=== PATIENT | male | born 1980 | race Caucasian/White ===

== ENCOUNTER → 2016-04-28 | Outpatient (CLI) | payer OTHER ==
--- NOTE | 2016-04-28 11:55 | MR ---
EXAMINATION TYPE: MR lumbar spine wo con DATE OF EXAM: 04/28/2016 11:18 AM COMPARISON: Radiographs 02/08/2015. HISTORY: 36-year-old male with lumbago, back pain for a few years going down right leg. TECHNIQUE: Multiplanar, multisequence images of the lumbar spine were acquired. 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 Vertebral body heights are preserved and alignment is maintained. Conus medullaris is normal. Very mild early desiccation of the L4-L5 intervertebral disc with mild disc bulging. There is a small left intraforaminal annular fissure here. The disc bulge contributes to mild narrowing of the bilat eral neuroforamina. At L3-L4, there is a right intraforaminal disc bulge contributing to mild right-sided neural foramina l narrowing with possible abutment of the exiting right L3 nerve root, sagittal image 10. No prevertebral or paravertebral soft tissue abnormality seen. IMPRESSION: 1. Very early disc desiccation at L4-L5 with bulging disks at L4-L5 and L3-L4. 2. An intraforaminal disc bulge at L3-L4 may abut the exiting right L3 nerve root. 3. Small left intraforaminal annular fissure at L4-L5 with bulging disc causing mild bilateral neurof oraminal stenoses. 4. 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
== END | disposition home or self-care (01) ==
LOC: RADMRIMAIN 10:40
PROVIDERS: ATTEND Psychiatry & Neurology Neurology
DX: M51.26 Other intervertebral disc displacement, lumbar region (principal); M99.73 Connective tissue and disc stenosis of intervertebral foramina of lumbar region; Q76.49 Other congenital malformations of spine, not associated with scoliosis
CPT/HCPCS: 72148

== ENCOUNTER 2021-03-23 21:45 | Emergency (ER) | payer OTHER ==
[2021-03-23 23:08] VITALS: RESP 20
[2021-03-24] MEDS ORDERED: ACETAMINOPHEN TAB 500 MG TAB PO STA (01:14)
[2021-03-24] MEDS ORDERED: SODIUM CHLORIDE 0.9% 1,000 ML IV ONE (01:14)
[2021-03-24] MEDS ORDERED: KETOROLAC 15 MG/ML 1 ML VIAL IVP STA (01:14)
[2021-03-24] MEDS ORDERED: SODIUM CHLORIDE 0.9% 50 ML IVPB ONE (01:30)
[2021-03-24] MEDS ORDERED: CASIRIVIMAB (REGN10933) (EUA) 600 MG, IMDEVIMAB (REGN10987) (EUA) 600 MG in SODIUM CHLO... IVPB ONE (02:00)
--- NOTE | 2021-03-24 02:52 | ED ---
General Adult HPI - General Chief complaint: Dizziness Stated complaint: Dizziness,Fever Time Seen by Provider: 03/24/21 01:04 Source: patient Mode of arrival: ambulatory Limitations: no limitations - History of Present Illness Initial comments: 41 year-old male patient presents to the emergency department today for evaluation of headache, chills, body aches. States symptoms started today. He also reports intermittent dizziness especially with standing. Denies any known fevers. States he is otherwise healthy. Patient denies any recent rash, cough, shortness of breath, chest pain, abdominal pain, nausea, vomiting, diarrhea, constipation, back pain, numbness, tingling, hematuria, dysuria, urinary urgency, urinary frequency, visual changes, or any other complaints. - Related Data Home Medications Medication Instructions Recorded Confirmed traMADol HCl [Ultram] 50 mg PO Q6H PRN 08/04/15 08/04/15 Previous Rx's Medication Instructions Recorded Hydrocortisone Cream 1 applic TOPICAL BID #1 tube 08/04/15 [Hydrocortisone 2.5% Cream] Allergies Allergy/AdvReac Type Severity Reaction Status Date / Time aspirin Allergy Unknown Verified 03/23/21 23:08 Childhood Penicillins Allergy Unknown Verified 03/23/21 23:08 Childhood Review of Systems ROS Statement: Those systems with pertinent positive or pertinent negative responses have been documented in the HPI. ROS Other: All systems not noted in ROS Statement are negative. Past Medical History Past Medical History: No Reported History, Myocardial Infarction (CA) Additional Past Medical History / Comment(s): mi at 26 - for fluid around his heart - stress related, back pain - ddd History of Any Multi-Drug Resistant Organisms: None Reported Past Surgical History: Adenoidectomy, Ear Surgery, Orthopedic Surgery, Tonsillectomy Past Psychological History: Depression Smoking Status: Never smoker Past Alcohol Use History: None Reported Past Drug Use History: None Reported General Exam Limitations: no limitations General appearance: alert, in no apparent distress, other (This is a well- developed, well-nourished adult male in no acute distress.) ENT exam: Present: normal exam, normal oropharynx, mucous membranes moist Respiratory exam: Present: normal lung sounds bilaterally. Absent: respiratory distress, wheezes, rales, rhonchi, stridor Cardiovascular Exam: Present: normal rhythm, tachycardia, normal heart sounds. Absent: systolic murmur, diastolic murmur, rubs, gallop, clicks GI/Abdominal exam: Present: soft, normal bowel sounds. Absent: distended, tenderness, guarding, rebound, rigid Neurological exam: Present: alert, oriented X3, CN II-XII intact Psychiatric exam: Present: normal affect, normal mood Skin exam: Present: warm, dry, intact, normal color. Absent: rash Course Vital Signs 03/23/21 03/24/21 03/24/21 23:05 00:00 01:30 Temperature 100.8 F H 99.0 F Pulse Rate 107 H 98 Pulse Rate [ 107 H [employer] ] Respiratory 20 20 20 Rate Blood Pressure 118/74 116/80 O2 Sat by Pulse 95 97 Oximetry Medical Decision Making - Medical Decision Making 41-year-old male patient presented for evaluation of dizziness, chills, body aches. He did test positive for COVID-19. He does meet criteria to receive monoclonal antibody infusion. He agreed to the infusion did tolerate it well. He'll be discharged with instructions to follow-up with his primary care physician for recheck in 1-2 days. Return parameters were discussed in detail. He verbalizes understanding and agrees with this plan. My attending is Dr. Bernard. - Lab Data Lab Results 03/23/21 Range/Units 23:19 Coronavirus (PCR) Detected A (Not Detectd) Disposition Clinical Impression: COVID-19 Disposition: HOME SELF-CARE Condition: Good Instructions (If sedation given, give patient instructions): Coronavirus Disease 2019 (COVID-19) Additional Instructions: Tips to help you feel better: -Maintain adequate fluid intake - especially water. -Rest, you are healing your body will require extra sleep. -Eat even if you do not feel like it - broth, jello, toast are fine if you cannot eat full meals. -Take tylenol and motrin alternating (if you have no allergies or have not been instructed to avoid these medications) to help with body aches and fevers. -Obtain over the counter vitamin C, zinc, and vitamin D3. -Take medications as prescribed. Follow-up with your primary care physician for recheck in 1-2 days. Return for any new, worsening, or concerning symptoms. Is patient prescribed a controlled substance at d/c from ED?: No Referrals: None,Stated [Primary Care Provider] - 1-2 days
[2021-03-24 03:50] VITALS: BP 120/80; PULSE 82; TEMP 98
== END 2021-03-24 03:49 | disposition home or self-care (01) ==
LOC: EC 21:45
DX: U07.1 COVID-19 (principal); I25.2 Old myocardial infarction; F32.A Depression, unspecified; Z88.0 Allergy status to penicillin
CPT/HCPCS: 99284; 96374; 96361; 87635; J1885; Q0244